=== PATIENT | female | born 1995 | race Caucasian/White ===

== ENCOUNTER → 2018-06-21 22:09 | Observation (INO) ==
--- NOTE | 2018-06-21 21:36 | OB/GYN Progress Note ---
Date of Encounter: 06/21/18 Time of Encounter: 21:34 - Assessment and Plan (1) 36 weeks gestation of Current Visit: Yes Status: Acute NST - reactive Yeast and bacterial vaginal infection - rx given Discharge home with labor precautions Follow up in the office with routine care and PRN POC per consult with Dr Guzman (2) NST (non-stress test) reactive Current Visit: Yes Status: Acute (3) Vaginal discharge during in third trimester Current Visit: Yes Status: Acute Subjective - Subjective Principal diagnosis: Rule out labor Interval history: Ms Freitas is a 23 year old at 36 weeks and 0 days that presents to triage with c/o contractions. She states positive movement. She denies headaches, vision changes, epigastric pain, leaking of fluid, vaginal discharge, and vaginal bleeding. She started care at roughly 19 weeks by ultrasound. She is seen by Dr Kincaid for her care. Antepartum ROS: movement normal, contractions Objective - Exam FHR: auscultation normal, category 1 FHR comments: Baseline 150; cat 1 tracing Contractions every 5 minutes Abdomen: Present: normal appearance, soft, gravid Uterus: Present: normal. Absent: firm, tenderness Cervical dilation: 1-2 Cervix effacement: 70 station: -2 Comments: SSE - Nitrazine negative, no pooling, no liquid from cervix, yeast adhered to dick, green/rosas discharge in vaginal vault No ferning
[2018-06-21 21:38] VITALS: BP 117/87
[2018-06-21 21:50] LABS: Bilirubin,Urine Negative (Negative); Blood,Urine Negative (Negative); Clarity,Urine Clear (Clear); Color,Urine Yellow (Yellow); Glucose,Urine (UA) Normal (Normal); Ketones,Urine Negative (Negative); Leukocyte Esterase,Urine Moderate (Negative); Nitrite,Urine Negative (Negative); Protein,Urine Trace mg/dL (Neg-Trace); Specific Gravity,Urine 1.015 (1.010-1.025); Urobilinogen,Urine Normal (Normal)
[2018-06-21 21:52] LABS: Bacteria,Urine Few per hpf (None-Few); Hyaline Casts,Urine None Seen per lpf (None-Few); RBC,Urine 0-3 per hpf (0-3); Squamous Epithelial Cell,Urine Many per lpf (None-Few); WBC,Urine 15-30 per hpf (0-3)
[2018-06-21 22:15] LABS: Amphetamine Screen,Urine Negative ng/mL (Cutoff=1000); Barbiturate Screen,Urine Negative ng/mL (Cutoff=200); Benzodiazepines Screen,Urine Negative ng/mL (Cutoff=200); Cannabinoid Screen,Urine Negative ng/mL (Cutoff = 50); Cocaine Screen,Urine Negative ng/mL (Cutoff= 300); Opiate Screen,Urine Negative ng/mL (Cutoff=300); Phencyclidine Screen,Urine Negative ng/mL (Cutoff=25)
== END | disposition home or self-care (01) ==
LOC: 1NENULAB
PROVIDERS: ADMIT Advanced Practice Midwife; ATTEND Advanced Practice Midwife

== ENCOUNTER 2018-07-13 11:02 | Inpatient (IN) ==
[2018-07-13] MEDS ORDERED: Metoclopramide 10 MG/2 ML VIAL IVP PRN (11:38)
[2018-07-13] MEDS ORDERED: *HR* Nalbuphine 10 MG/ML AMPUL IVP PRN (11:38)
[2018-07-13] MEDS ORDERED: Famotidine 20 MG/2 ML VIAL IVP PRN (11:38)
[2018-07-13] MEDS ORDERED: Ondansetron 4 MG/2 ML VIAL IVP PRN (11:38)
[2018-07-13] MEDS ORDERED: Ringers Solution, Lactated 1,000 ML IVC SCH (11:45)
[2018-07-13] MEDS ORDERED: Oxytocin 20 units/ LR 1000 mL 20 UNIT/1,000 ML BAG IVC SCH ×2 (12:45→22:09)
--- NOTE | 2018-07-13 13:19 | OB/GYN History & Physical ---
Date of Encounter: 07/13/18 Time of Encounter: 13:17 Assessment and Plan (1) 39 weeks gestation of Current visit: Yes Status: Chronic Risk and benefits of induction of labor were discussed. Mckoy score is 10. (2) Elective induction of labor planned Current visit: Yes Status: Acute History of Present Illness HPI: Ms. Freitas is a 23 year old female 23-year-old 2 para 1 white female enters today for admission for induction of labor. She is 39 weeks and 1/7. She has had no problems during her . She denies spontaneous rupture membranes, vaginal bleeding, regular contractions, and endorses good movement. Past Med Surg Social Fam HX - Past Medical History Medical history: no medical history Psychiatric history: no psych history - Past Surgical History Surgical History: no surgical history - Social History Smoking Status: Never smoker Smokeless Tobacco Status: No Alcohol use: none Drug use: none - Family History Mother Living Status: Still Living Hx Family Cardiac Disorders: No Hx Family Respiratory Disorders: No Hx Family Cancer: No Hx Family GI Disorders: No Hx Family Genitourinary Disorders: No Hx Family Endocrine Disorder: No Hx Family Musculoskeletal Disorders: No Hx Family Neuromuscular Disorders: No Hx Family Neurologic Disorders: No Hx Family HEENT Disorders: No Hx Family Autoimmune Disorders: No Hx Family Reproductive Disorders: No Hx Family Psychosocial Disorders: No Hx Family Medical Disorders: No Obstetrical History - Pregnancies : 2 Para: 1 Medications and Allergies Ferrous Sulfate [Iron] 1 tab PO DAILY 07/13/18 [History] Allergy/AdvReac Type Severity Reaction Status Date / Time No Known Allergies Allergy Verified 07/13/18 11:29 Review of System OB All systems PM: reviewed and no additional remarkable complaints except as stated - Genitourinary Genitourinary: amenorrhea - Menstruation Menstruation: amenorrhea Exam - Constitutional Constitutional: well developed, well nourished, no acute distress, average body habitus - HEENT HEENT: Normocephaly - Neck Neck exam: full ROM - Lungs Respiratory exam: CTAB - Cardiovascular Cardiovascular exam: RRR - Abdomen Abdomen: Present: gravid, non tender - Extremities Extremities exam: full ROM Deep Tendon Reflex Grade: 2+ Normal - Vulva Vulva: bilateral: normal - Vagina Vagina: Present: normal moisture - Cervix Dilation: 4 Effacement: 80 Station: -1 - Uterus Uterus exam: Present: enlarged - Anus/Rectum Anus/Rectum: Present: normal perianal skin Results All other labs normal. - VTE Reasons for not Prescribing Prophylaxis: Treatment not Indicated - Low risk for VTE
--- NOTE | 2018-07-13 13:27 | Anesthesia Evaluation PreOp ---
Date of Encounter: 07/13/18 Time of Encounter: 13:25 - Past History Planned Operation: sivan Cardiac History: Denies any Significant Hx Pulmonary History: Denies Any Significant HX BROTH MIXER History: Denies Any Significant HX Other Medical History: GERD Anesthesia History: No Prior Anesthetic Complications, Past Anesthesia (wrist, sivan) : Yes Test: Positive Alcohol Use: none Drug use: none Medications and Allergies Ferrous Sulfate [Iron] 1 tab PO DAILY 07/13/18 [History] Allergy/AdvReac Type Severity Reaction Status Date / Time No Known Allergies Allergy Verified 07/13/18 11:29 - Meds/Allergy Pre-op Review Medications Reviewed: Yes Allergies Reviewed: Yes Beta Blockers on Current Med List: No Anesthesia Exam 120/87 88 16 fht 132 Height: 5'5" Weight: 98k NPO (# of Hours): 2 Pain Scale: 2 Pain Scale Used: Numeric (1 - 10) - HEENT Pupil (Motor): Pupils equal Mallampati: II Teeth: Normal Oral Opening: Greater than 3 - BROTH MIXER LOC: Oriented BROTH MIXER Motor: Normal RUE, Normal LUE, Normal RLE, Normal LLE, Normal Face BROTH MIXER Sensory: Normal: RUE, LUE, RLE, LLE, Face - Cardiac Rhythm: Regular Murmur: None - Pulmonary Breath Sounds: bilateral Clear Respiratory Effort: Symmetrical Anesthesia Assess/Plan ASA Score: 2 Level of consciousness: Cooperative Anesthetic Plan: Epidural (risks discussed, questions answered, consented) Autologous Blood: No Monitoring Plan: Standard Monitors Recovery Plan: Other
[2018-07-13] MEDS ORDERED: *HR* FentaNYL (PF) 100 MCG/2 ML VIAL EP ONE (13:28)
[2018-07-13] MEDS ORDERED: Epidural Premix (fent/bupiv) 110 ML EP SCH (13:30)
[2018-07-13] MEDS ORDERED: Lidocaine -MPF 2% 5 ML VIAL ONE (13:30)
[2018-07-13 13:33] LABS: Basophils % 0.3 %; Eosinophils # 0.3 K/mcL (0.0-0.6); Eosinophils % 2.1 %; Hematocrit 34.4 % (35.3-44.9); Hemoglobin 11.5 g/dL (11.5-15.4); Immature Granulocytes % 0.8 % (0-4); Lymphocytes # 1.8 K/mcL (0.6-4.6); Lymphocytes % 15.1 %; Mean Corpuscular HGB Conc 33.4 g/dL (31.6-35.5); Mean Corpuscular Hemoglobin 31.1 pg (28.0-33.3); Mean Platelet Volume 9.3 fL (9.4-12.4); Monocytes # 0.7 K/mcL (0.0-1.3); Monocytes % 5.6 %; Neutrophils # 9.1 K/mcL (1.6-8.9); Platelet Count 215 K/mcL (140-400); Red Cell Distribution Width 13.7 % (11.5-14.5); Segmented Neutrophils % 76.1 %
[2018-07-13 13:39] LABS: Amphetamine Screen,Urine Negative ng/mL (Cutoff=1000); Barbiturate Screen,Urine Negative ng/mL (Cutoff=200); Benzodiazepines Screen,Urine Negative ng/mL (Cutoff=200); Cannabinoid Screen,Urine Negative ng/mL (Cutoff = 50); Cocaine Screen,Urine Negative ng/mL (Cutoff= 300); Opiate Screen,Urine Negative ng/mL (Cutoff=300); Phencyclidine Screen,Urine Negative ng/mL (Cutoff=25)
--- NOTE | 2018-07-13 17:17 | OB Labor Progress Note ---
Date of Encounter: 07/13/18 Time of Encounter: 17:16 Labor Progress Note - Subjective Subjective: Patient reports 8 out of 10 pain - Cervix Cervix: 8/90/-1; membranes bulging - Heart Tones Heart Tones: Category 1 - Interventions Interventions: We will proceed with epidural.
--- NOTE | 2018-07-13 17:49 | Anesthesia Procedures ---
Addendum entered and electronically signed by Baudilio Chavira CRNA 07/13/18 20:15: Infant Delivery Date: 07/13/18 Delivery Time: 19:37 Presentation: vertex Original Note: Date of Encounter: 07/13/18 Time of Encounter: 17:47 Procedures: Anesthesia - Epidural/Spinal Patient ID/Chart reviewed: Yes Patient examined: Yes OB Eval: Gestational age: 39 OB Eval: : 2 OB Eval: Hx Para: 1 OB Eval: Dilated at (cm): 5 OB Eval: Contractions: Non-stressed pattern Consent Obtained: Yes Supplemental Oxygen: None/Room Air Site Prep: Aseptic Technique, Sterile prep and drape, 0.5% Chlorhexidine/Alcohol Patient position: upright Local Anesthetic: Lidocaine 1% Amount of Local Anesthetic used: 4 Touhy Needle Gauge: 18 Touhy Needle Depth (cm): 8 Catheter Depth at Skin (cm): 15 Test Dose (1.5% Lido + Epi): Volume given (mls): 3 Test Dose Result: Negative Loading Dose: Fentanyl (mcg): 100 Loading Dose: Other: rop 0.2% 10cc Loading Dose Administered: Thru Touhy Needle Infusion Med: 0.125% Bupivacaine w/ 2 mcg/ml Fentanyl Infusion Rate (mls/hr): 15 (pcea cc q30") Catheter Secured in Place: Tegaderm Interspace Used: L3-L4 Loss of Resistance (BEBE): Yes Blood: No CSF: No Paresthesia: No Procedure: aseptic, bijan well, VSS, effective Vitals + FHT's: 119/78 88 fht 143
[2018-07-13] MEDS ORDERED: EPHEDrine 50 MG/ML VIAL ONE (18:00)
--- NOTE | 2018-07-13 18:53 | OB Labor Progress Note ---
Date of Encounter: 07/13/18 Time of Encounter: 18:52 Labor Progress Note - Cervix Cervix: Complete/0 - Heart Tones Heart Tones: Category 2 - Interventions Interventions: Scalp electrode placed. Fluid bolus, oxygen.
--- NOTE | 2018-07-13 20:04 | OB/GYN Procedure Note ---
Delivery - Delivery Provider: Javon Kincaid Intrapartum events: none Delivery induction: oxytocin Delivery monitor: external FHT, external uterine, internal FHT Anesthesia: epidural Quantitated Blood Loss: 50 - Infant (s) Infant A Delivery Date: 07/13/18 Infant Delivery Time: 19:37 Presentation: vertex Position: OA Gender: Male Viability: Viable Pounds: 8 Ounces: 0 Weight Gram: 3.635 kg at 1 minute: 8 at 5 mins: 9 Shoulder Dystocia: not encountered Specimens collected: cord blood Placenta: spontaneous Cord: nuchal cord, nuchal cut - Repair Episiotomy: none Laceration Description: None - Complications Delivery complications: none - Disposition Mom disposition: stable in LDR disposition: stable in LDR - Comments Comments: Patient progressed to complete and on the perineum. She delivered a live male at 1937. Nuchal cord was noted 1 that was tight and cut. Weight was 8 pounds. Apgars 8 and 9. The episiotomy or tears were noted. Placenta is a hold. Estimated blood loss is 50 mL.
[2018-07-13] MEDS ORDERED: Measles/Mumps/Rubella Vacc 0.5 ML VIAL SQ PRN (22:09)
[2018-07-13] MEDS ORDERED: Acetaminophen 325 MG TABLET PO PRN (22:09)
[2018-07-14 05:28] LABS: Basophils % 0.2 %; Eosinophils # 0.3 K/mcL (0.0-0.6); Hematocrit 30.5 % (35.3-44.9); Hemoglobin 10.1 g/dL (11.5-15.4); Immature Granulocytes % 0.5 % (0-4); Lymphocytes # 1.6 K/mcL (0.6-4.6); Lymphocytes % 13.2 %; Mean Corpuscular HGB Conc 33.1 g/dL (31.6-35.5); Mean Corpuscular Hemoglobin 30.9 pg (28.0-33.3); Mean Corpuscular Volume 93.3 fL (83.0-100.0); Mean Platelet Volume 9.7 fL (9.4-12.4); Monocytes # 0.8 K/mcL (0.0-1.3); Monocytes % 6.6 %; Neutrophils # 9.5 K/mcL (1.6-8.9); Platelet Count 165 K/mcL (140-400); Red Blood Count 3.27 M/mcL (3.82-4.97); Red Cell Distribution Width 13.4 % (11.5-14.5); Segmented Neutrophils % 77.5 %
[2018-07-14] MEDS: Ibuprofen 600 MG TABLET PO PRN ×2 (08:01→18:05)
[2018-07-14] MEDS ORDERED: Prenatal Vit/FA 1 EACH TABLET PO SCH (09:00)
--- NOTE | 2018-07-14 09:53 | Discharge Summary ---
Date of Encounter: 07/14/18 Time of Encounter: 09:51 - Discharge Diagnosis (1) Vaginal delivery Priority: Primary Status: Acute Comments: Pt meeting all milestones. Anticipate discharge home this evening per pt request. (2) Patient is a currently breast-feeding mother Priority: Secondary Status: Acute Comments: Pt has breast pump. well established - Discharge Medications Prescriptions: New Ibuprofen [Motrin] 600 mg PO Q6HR PRN #30 tablet PRN Reason: Cramping Docusate [Colace] 100 mg PO BID #60 capsule Discontinued Ferrous Sulfate [Iron] 1 tab PO DAILY Home Medications: Docusate [Colace] 100 mg PO BID #60 capsule 07/14/18 [Rx] Ibuprofen [Motrin] 600 mg PO Q6HR PRN #30 tablet 07/14/18 [Rx] Allergies/Adverse Reactions: Allergy/AdvReac Type Severity Reaction Status Date / Time No Known Allergies Allergy Verified 07/13/18 11:29 Data Procedures and tests throughout hospitalization: Laboratory Tests 07/13/18 07/13/18 07/13/18 12:34 13:23 13:23 WBC 12.0 H RBC 3.70 L Hgb 11.5 Hct 34.4 L MCV 93.0 MCH 31.1 MCHC 33.4 RDW 13.7 Plt Count 215 MPV 9.3 L Immature Gran % 0.8 Seg Neutrophils % 76.1 Lymphocytes % 15.1 Monocytes % 5.6 Eosinophils % 2.1 Basophils % 0.3 Neutrophils # 9.1 H Lymphocytes # 1.8 Monocytes # 0.7 Eosinophils # 0.3 Basophils # 0.0 Urine Opiates Screen Negative Ur Barbiturates Screen Negative Ur Phencyclidine Scrn Negative Ur Amphetamines Screen Negative U Benzodiazepines Scrn Negative Urine Cocaine Screen Negative U Marijuana (THC) Screen Negative Ur Drug Screen Interp See Below Specimen Rejected Clotted 07/14/18 05:00 WBC 12.2 H RBC 3.27 L Hgb 10.1 L Hct 30.5 L MCV 93.3 MCH 30.9 MCHC 33.1 RDW 13.4 Plt Count 165 MPV 9.7 Immature Gran % 0.5 Seg Neutrophils % 77.5 Lymphocytes % 13.2 Monocytes % 6.6 Eosinophils % 2.0 Basophils % 0.2 Neutrophils # 9.5 H Lymphocytes # 1.6 Monocytes # 0.8 Eosinophils # 0.3 Basophils # 0.0 Urine Opiates Screen Ur Barbiturates Screen Ur Phencyclidine Scrn Ur Amphetamines Screen U Benzodiazepines Scrn Urine Cocaine Screen U Marijuana (THC) Screen Ur Drug Screen Interp Specimen Rejected Labs on day of discharge: Labs from last 24 hours 07/14/18 07/13/18 07/13/18 05:00 13:23 13:23 WBC 12.2 H 12.0 H RBC 3.27 L 3.70 L Hgb 10.1 L 11.5 Hct 30.5 L 34.4 L MCV 93.3 93.0 MCH 30.9 31.1 MCHC 33.1 33.4 RDW 13.4 13.7 Plt Count 165 215 MPV 9.7 9.3 L Immature Gran % 0.5 0.8 Seg Neutrophils % 77.5 76.1 Lymphocytes % 13.2 15.1 Monocytes % 6.6 5.6 Eosinophils % 2.0 2.1 Basophils % 0.2 0.3 Neutrophils # 9.5 H 9.1 H Lymphocytes # 1.6 1.8 Monocytes # 0.8 0.7 Eosinophils # 0.3 0.3 Basophils # 0.0 0.0 Urine Opiates Screen Negative Ur Barbiturates Screen Negative Ur Phencyclidine Scrn Negative Ur Amphetamines Screen Negative U Benzodiazepines Scrn Negative Urine Cocaine Screen Negative U Marijuana (THC) Screen Negative Ur Drug Screen Interp See Below Specimen Rejected 07/13/18 12:34 WBC RBC Hgb Hct MCV MCH MCHC RDW Plt Count MPV Immature Gran % Seg Neutrophils % Lymphocytes % Monocytes % Eosinophils % Basophils % Neutrophils # Lymphocytes # Monocytes # Eosinophils # Basophils # Urine Opiates Screen Ur Barbiturates Screen Ur Phencyclidine Scrn Ur Amphetamines Screen U Benzodiazepines Scrn Urine Cocaine Screen U Marijuana (THC) Screen Ur Drug Screen Interp Specimen Rejected Clotted Date of admission: 07/13/18 11:02 Primary care physician: PCP NONE Consults: 07/13/18 22:09 Consult to Maintenance Chief [CONS] Routine Comment: Vaginal delivery, consult needed Discharging clinician: Angie Fay Anticipated date of discharge: 07/14/18 - Patient Status Disposition: Home, Self-Care Condition: Good Functional capacity at discharge: independent ambulation Overall status at discharge: patient is progressing back to baseline - Discharge Instructions Follow Up With: NONE,PCP [Primary Care Provider] - Javon Kincaid MD [Partnered Physician] - - Diet and Activity Activity: increase activity as tolerated Diet: regular diet Hospital Course Reason for admission: induction of labor Delivery: Episiotomy: none Laceration: none Other procedures: none complications: none Discharge diagnosis: IUP at term delivered baby: male Hospital course: - Delivery Provider: Javon Kincaid Intrapartum events: none Delivery induction: oxytocin Delivery monitor: external FHT, external uterine, internal FHT Anesthesia: epidural Quantitated Blood Loss: 50 - (s) Infant A Delivery Date: 07/13/18 Delivery Time: 19:37 Presentation: vertex Position: OA Gender: Male Viability: Viable Pounds: 8 Ounces: 0 Weight Gram: 3.635 kg at 1 minute: 8 at 5 mins: 9 Shoulder Dystocia: not encountered Specimens collected: cord blood Placenta: spontaneous Cord: nuchal cord, nuchal cut - Repair Episiotomy: none Laceration Description: None - Complications Delivery complications: none - Disposition Mom disposition: home PPD1 Friendship disposition: home with mother, bottle feeding Time Attestation: Total time spent providing and/or coordinating discharge services: Time Spent: Less than 30 minutes Exam - Constitutional Vitals: Temp Pulse Resp BP Pulse Ox 98.0 F 85 14 115/73 98 07/14/18 08:03 07/14/18 08:03 07/14/18 08:03 07/14/18 08:03 07/14/18 08:03 General appearance IM: A&O X 3 - Respiratory Respiratory exam: Present: CTAB - Cardiovascular Cardiovascular exam IM: Present: RRR - GI/Abdominal GI/Abdominal exam IM: soft, no peritoneal signs - Uterine Tone: Firm Uterus Position: 1 Finger Below Umbilicus - Extremities Exam Extremities exam IM: Present: pedal edema (mild bilaterally) - Neurological Exam Neurological exam: normal gait, oriented X3 - Psychiatric Additional comments: reports tired but otherwise good mood. declines contraception. Safe spacing discussed.
[2018-07-14 17:09] VITALS: BP 125/77
== END 2018-07-14 20:45 | disposition home or self-care (01) | DRG 560 ==
LOC: 1NENULAB 11:02 → 1NENUOBS 21:58
PROVIDERS: ADMIT Obstetrics & Gynecology; ATTEND Obstetrics & Gynecology